=== PATIENT | female | born 1975 | race Caucasian/White ===

== ENCOUNTER 2018-11-22 19:55 | Emergency (ER) | payer BC ==
[2018-11-22] MEDS ORDERED: NA CHLORIDE 0.9% 1,000 ML ONE (23:03)
[2018-11-22 23:13] LABS: Absolute Lymphocytes (CBC) 2.7 K/uL (0.7-4.9); Absolute Monocytes 0.9 K/uL (0.1-1.3); Absolute Neutrophil 6.1 K/uL (1.8-8.0); Basophils % 0.6 % (0-1.3); Eosinophils % 3.2 % (0-4.4); Hematocrit 40.1 % (36.0-45.0); Lymphocytes % 26.7 % (15.3-44.8); MPV 10.6 fL (7.6-11.3); Monocytes % 8.6 % (3.3-12.3)
[2018-11-22 23:16] LABS: Protime INR 1.16
[2018-11-22 23:48] LABS: ALT/SGPT 23 U/L (12-78); AST/SGOT 35 U/L (15-37); Albumin 3.3 g/dL (3.4-5.0); Alkaline Phosphatase 105 U/L (45-117); BUN Blood Urea Nitrogen 8 mg/dL (7-18); Bicarbonate 25 mmol/L (21-32); Bilirubin Direct 0.2 mg/dL (0-0.2); Bilirubin Total 0.3 mg/dL (0.2-1.0); Glucose Level 146 mg/dL (74-106); Magnesium 1.7 mg/dL (1.8-2.4); NT PRO-BNP 274 pg/mL (<125); Potassium 3.7 mmol/L (3.5-5.1); Protein, Total 7.4 g/dL (6.4-8.2); Sodium Level 142 mmol/L (136-145); Troponin (Emerg Dept Use Only) < 0.02 ng/mL (0.0-0.045)
--- NOTE | 2018-11-23 03:07 | EDPHYS ---
Physician Documentation [facility] Name: Norma Whiting Age: 43 yrs Sex: Female : 1975 Arrival Date: 11/22/2018 Time: 19:56 Bed 7 Private MD: Maxx Gordon ED Physician William Russ HPI: 11/22 23:38 This 43 yrs old Female presents to ER via Ambulatory with complaints of Chest ma2 Tightness, Dizziness. 23:38 Onset: gradually, 3 day(s) ago. Associated signs and symptoms: Pertinent negatives: ma2 cough, headache, syncope. The chest pain is described as a heaviness. Duration: The patient or guardian reports a single episode. Severity of pain: At its worst the pain was mild in the emergency department the pain is unchanged. 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 - Social history:: Smoking status: Patient uses tobacco products, denies chronic smoking, but will smoke occasionally, Patient/guardian denies using alcohol, street drugs, The patient lives with family. - Ebola Screening: : Patient negative for fever greater than or equal to 101.5 degrees Fahrenheit, and additional compatible Ebola Virus Disease symptoms. - Family history:: not pertinent. ROS: 23:38 Constitutional: Negative for fever, chills, and weight loss. ma2 23:38 Respiratory: Positive for shortness of breath, Negative for hemoptysis, orthopnea. 23:38 All other systems are negative. Exam: 23:38 Constitutional: This is a well developed, well nourished patient who is awake, alert, ma2 and in no acute distress. Neck: Trachea midline, no thyromegaly or masses palpated, and no cervical lymphadenopathy. Supple, full range of motion without nuchal rigidity, or vertebral point tenderness. No Meningismus. Chest/axilla: Normal chest wall appearance and motion. Nontender with no deformity. No lesions are appreciated. Cardiovascular: Regular rate and rhythm with a normal S1 and S2. No gallops, murmurs, or rubs. Normal PMI, no JVD. No pulse deficits. Respiratory: Lungs have equal breath sounds bilaterally, clear to auscultation and percussion. No rales, rhonchi or wheezes noted. No increased work of breathing, no retractions or nasal flaring. Abdomen/GI: Soft, non-tender, with normal bowel sounds. No distension or tympany. No guarding or rebound. No evidence of tenderness throughout. Vital Signs: 20:09 BP 111 / 74; Pulse 104; Resp 18 S; Temp 98.8(TE); Pulse Ox 97% on R/A; Weight 102.06 kg jd3 (R); Height 4 ft. 11 in. (149.86 cm) (R); Pain 0/10; 23:00 BP 133 / 71; Pulse 91; Resp 24; Pulse Ox 96% on R/A; lp1 23:30 BP 129 / 75; Pulse 93; Resp 26; Pulse Ox 95% on R/A; lp1 11/23 00:00 BP 139 / 73; Pulse 93; Resp 17; Pulse Ox 95% on R/A; lp1 01:30 BP 141 / 81; Pulse 94; Resp 22; Pulse Ox 95% on R/A; lp1 03:00 BP 141 / 84; Pulse 91; Resp 19; Pulse Ox 96% on R/A; lp1 11/22 20:09 Body Mass Index 45.44 (102.06 kg, 149.86 cm) jd3 MDM: 11/22 23:38 Differential diagnosis: anxiety, coronary artery disease gastroesophageal reflux ma2 disease (GERD), pulmonary embolus, stable angina. 11/23 01:17 Patient medically screened. ma2 03:06 Data reviewed: vital signs, nurses notes, lab test result(s). Counseling: I had a ma2 detailed discussion with the patient and/or guardian regarding: the historical points, exam findings, and any diagnostic results supporting the discharge/admit diagnosis, the presence of at least one elevated blood pressure reading (>120/80) during this emergency department visit, the need for outpatient follow up. ED course: trop is negative x 2, chest pressure is constant for 3 days worse with cough and deep breath and reproducible on exam acs unlikely . 11/22 22:25 Order name: Basic Metabolic Panel; Complete Time: 00:43 ma2 11/22 22:25 Order name: CBC with Diff; Complete Time: 23:37 ma2 11/22 22:25 Order name: LFT's; Complete Time: 00:43 ma2 11/22 22:25 Order name: Magnesium; Complete Time: 00:43 ma2 11/22 22:25 Order name: NT PRO-BNP; Complete Time: 00:43 ma2 11/22 22:25 Order name: PT-INR; Complete Time: 23:37 ma2 11/22 21:03 Order name: Chest Pa And Lat (2 Views) XRAY snw 11/22 22:25 Order name: Troponin (emerg Dept Use Only); Complete Time: 00:43 ma2 11/22 23:05 Order name: D-Dimer; Complete Time: 23:37 EDMS 11/22 23:38 Order name: CT Chest For PE Angio wi2 11/23 02:07 Order name: Troponin (emerg Dept Use Only): 3 hrs repeat please; Complete Time: 03:05 ma2 11/22 21:03 Order name: EKG; Complete Time: 21:03 w 11/22 21:03 Order name: EKG - Nurse/Tech; Complete Time: 21:08 w 11/22 22:25 Order name: Cardiac monitoring; Complete Time: 23:01 ma2 11/22 22:25 Order name: IV Saline Lock; Complete Time: 23:01 ma2 11/22 22:25 Order name: Labs collected and sent; Complete Time: 23:01 wi2 11/22 22:25 Order name: O2 Per Protocol; Complete Time: 23:01 ma2 11/22 22:25 Order name: O2 Sat Monitoring; Complete Time: 23:01 ma Administered Medications: 11/22 22:56 Drug: NS 0.9% 1000 ml Route: IV; Rate: 1 bolus; Site: right hand; ea 11/23 00:30 Follow up: IV Status: Completed infusion; IV Intake: 1000ml lp1 Disposition: 11/23/18 03:05 Discharged to Home. Impression: Chest pain on breathing. - Condition is Stable. - Discharge Instructions: Nonspecific Chest Pain, [id number]. - Prescriptions for Tylenol- Codeine #3 300-30 mg Oral Tablet - take 2 tablet by ORAL route every 6 hours As needed; 30 tablet. - Medication Reconciliation Form, Thank You Letter, Antibiotic Education, Prescription Opioid Use form. - Follow up: Private Physician; When: Tomorrow; Reason: Continuance of care. Signatures: Dispatcher [employer] EDND Serena Soto, GRAPHIC DESIGN INTERN-C GRAPHIC DESIGN INTERN-Csnw Dariana Lindsey RN RN lp1 Susu Robertson RN RN ea Davies, Jonathon, RN RN jd3 William Russ MD MD ma2 Corrections: (The following items were deleted from the chart) 11/22 22:28 22:26 Chest Single View+RAD.RAD.BRZ ordered. EDND EDND 23:05 22:35 D-DIMER+COAG.LAB.BRZ ordered. EDND EDND 11/23 03:22 03:05 11/23/2018 03:05 Discharged to Home. Impression: Chest pain on breathing. lp1 Condition is Stable. Forms are Medication Reconciliation Form, Thank You Letter, Antibiotic Education, Prescription Opioid Use. Follow up: Private Physician; When: Tomorrow; Reason: Continuance of care. ma2
--- NOTE | 2018-11-23 03:07 | ER ---
Nurse's Notes [facility] Name: Norma Whiting Age: 43 yrs Sex: Female : 1975 Arrival Date: 11/22/2018 Time: 19:56 Bed 7 Private MD: Maxx Gordon Diagnosis: Chest pain on breathing Presentation: 11/22 20:05 Presenting complaint: Patient states: "I was taking some mediation my doctor gave me, jd3 it gave me chest pressure. when contacting the doctors office they said the medication doesn't cause chest pressure and to come to the ER.". Transition of care: patient was not received from another setting of care. Onset of symptoms was November 22, 2018. Risk Assessment: Do you want to hurt yourself or someone else? Patient reports no desire to harm self or others. Initial Sepsis Screen: Does the patient meet any 2 criteria? No. Patient's initial sepsis screen is negative. Does the patient have a suspected source of infection? No. Patient's initial sepsis screen is negative. Care prior to arrival: None. 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 - Social history:: Smoking status: Patient uses tobacco products, denies chronic smoking, but will smoke occasionally, Patient/guardian denies using alcohol, street drugs, The patient lives with family. - Ebola Screening: : Patient negative for fever greater than or equal to 101.5 degrees Fahrenheit, and additional compatible Ebola Virus Disease symptoms. - Family history:: not pertinent. Screenin:45 Abuse screen: Denies threats or abuse. Denies injuries from another. Nutritional lp1 screening: No deficits noted. Tuberculosis screening: No symptoms or risk factors identified. Fall Risk None identified. Assessment: 22:45 General: Appears uncomfortable, Behavior is calm, cooperative, appropriate for age. lp1 Pain: Complains of pain in chest Pain does not radiate. Pain began gradually. Neuro: Level of Consciousness is awake, alert, obeys commands, Oriented to person, place, time, situation. Cardiovascular: Patient's skin is warm and dry. Respiratory: Respiratory effort is even, unlabored, Respiratory pattern is regular, Breath sounds are clear bilaterally. GI: No signs and/or symptoms were reported involving the gastrointestinal system. : No signs and/or symptoms were reported regarding the genitourinary system. EENT: No signs and/or symptoms were reported regarding the EENT system. Derm: Skin is pink, warm \\T\\ dry. Musculoskeletal: Circulation, motion, and sensation intact. 23:45 Reassessment: Patient appears in no apparent distress at this time. No changes from lp1 previously documented assessment. Patient and/or family updated on plan of care and expected duration. Pain level reassessed. 11/23 00:44 Reassessment: Patient appears in no apparent distress at this time. Patient returned lp1 from CT at this time. 02:00 Reassessment: Patient appears in no apparent distress at this time. Patient and/or lp1 family updated on plan of care and expected duration. Pain level reassessed. Patient is alert, oriented x 3, equal unlabored respirations, skin warm/dry/pink. Patient aware of pending CT results. 03:22 Reassessment: Patient is alert, oriented x 3, equal unlabored respirations, skin lp1 warm/dry/pink. Patient states feeling better. Vital Signs: 11/22 20:09 BP 111 / 74; Pulse 104; Resp 18 S; Temp 98.8(TE); Pulse Ox 97% on R/A; Weight 102.06 kg jd3 (R); Height 4 ft. 11 in. (149.86 cm) (R); Pain 0/10; 23:00 BP 133 / 71; Pulse 91; Resp 24; Pulse Ox 96% on R/A; lp1 23:30 BP 129 / 75; Pulse 93; Resp 26; Pulse Ox 95% on R/A; lp1 11/23 00:00 BP 139 / 73; Pulse 93; Resp 17; Pulse Ox 95% on R/A; lp1 01:30 BP 141 / 81; Pulse 94; Resp 22; Pulse Ox 95% on R/A; lp1 03:00 BP 141 / 84; Pulse 91; Resp 19; Pulse Ox 96% on R/A; lp1 11/22 20:09 Body Mass Index 45.44 (102.06 kg, 149.86 cm) jd3 ED Course: 11/22 19:56 Patient arrived in ED. am2 19:57 Maxx Gordon MD is Private Physician. am2 20:07 Triage completed. jd3 20:10 Arm band placed on. EKG completed in triage. Results shown to MD. jd3 21:19 X-ray completed. Patient tolerated procedure well. ml 21:21 Chest Pa And Lat (2 Views) XRAY In Process Unspecified. EDMS 22:24 William Russ MD is Attending Physician. ma2 22:38 Susu Robertson, LASHON is Primary Nurse. ea 22:45 Patient has correct armband on for positive identification. Placed in gown. Bed in low lp1 position. Call light in reach. bill clerk on. Pulse ox on. NIBP on. 22:45 Patient maintains SpO2 saturation greater than 95% on room air. lp1 23:00 Inserted saline lock: 22 gauge in right hand, using aseptic technique. Blood collected. lp1 23:17 Notified ED physician of a critical lab result(s). d dimer 1112. 23:26 Dariana Lindsey, LASHON is Primary Nurse. lp1 04 00:[address] via stretcher. lp1 00:23 Inserted saline lock: 22 gauge in right antecubital area, using aseptic technique. lp1 00:53 CT completed. Patient tolerated procedure well. Patient moved back from CT. 01:11 CT Chest For PE Angio In Process Unspecified. EDMS 02:36 Repeat lab(s) drawn. by wy, sent to lab. lp1 02:36 No provider procedures requiring assistance completed. lp1 03:22 IV discontinued, No redness/swelling at site. Pressure dressing applied, x2. lp1 Administered Medications: 11/22 22:56 Drug: NS 0.9% 1000 ml Route: IV; Rate: 1 bolus; Site: right hand; emilie 11/23 00:30 Follow up: IV Status: Completed infusion; IV Intake: 1000ml lp1 Intake: 00:30 IV: 1000ml; Total: 1000ml. lp1 Outcome: 03:05 Discharge ordered by . ma2 03:22 Discharged to home ambulatory, with family. lp1 03:22 Condition: good 03:22 Discharge instructions given to patient, Instructed on discharge instructions, follow up and referral plans. medication usage, Demonstrated understanding of instructions, follow-up care, medications, Prescriptions given X 1. 03:22 Patient left the ED. lp1 Signatures: Dispatcher [employer] EDND Kyle Ray Felicia, RN Mirna Smyth Laura, RN RN lp1 Tashia Culver amSusu Gregory RN RN Figueroa Rossi RN RN jd3 William Russ MD MD ma2
--- NOTE | 2018-11-23 08:14 | RAD REPORT ---
EXAM DESCRIPTION: Kendy Ram (2 Views)11/22/2018 9:23 pm CLINICAL HISTORY: Chest pain COMPARISON: None FINDINGS: The lungs appear clear of acute infiltrate. The heart is mildly enlarged IMPRESSION: No acute abnormalities displayed
--- NOTE | 2018-11-23 10:01 | RAD REPORT ---
EXAM DESCRIPTION: CT - Chest For Pe Angio - 11/23/2018 5:09 am CLINICAL HISTORY: Cough COMPARISON: None. TECHNIQUE: Axial [address] imaging of the thorax utilizing intravenous contrast. Reformatted 3 mm bina nal and sagittal images reviewed. Reconstructed 2 mm right and left oblique images of the pulmonary v asculature also reviewed. This exam was performed according to our departmental dose-optimization program which includes automa vikki exposure control, adjustment of the mA and/or kV according to patient size and/or use of iterativ e reconstruction technique FINDINGS: PULMONARY ARTERIES: Normal caliber main pulmonary artery. No filling defect within the ri ght atrium, right ventricle, central, or peripheral pulmonary vasculature. HEART/GREAT VESSELS: The heart is mildly enlarged. No pericardial fluid. Normal caliber thoracic aor ta. Normal branch pattern of the arch vessels. MEDIASTINUM/RA: No lymphadenopathy. Normal appearance of the central airways. Normal esophagus. LUNGS/PLEURA: No airspace consolidation. No edema. No pleural fluid. CHEST WALL/SOFT TISSUES: Normal thyroid. No axillary lymphadenopathy. There are a few scattered scle rotic densities in the right and left ribs due to bone islands. There is mild generalized thoracic sp ondylosis. Multilevel Schmorl's nodes are present. UPPER ABDOMEN: Decreased liver attenuation due to mild steatosis. Normal spleen, stomach, and pancre as. IMPRESSION: 1. No pulmonary embolism. 2. No acute chest disease. 3. Mild fatty liver. Electronically signed by: Petra Mclean DO 11/23/2018 1:29 AM CDT Due to temporary technical issues with the PACS/Fluency reporting system, reports are being signed by the in house radiologist as a courtesy to ensure prompt reporting. The interpreting radiologist is f ully responsible for the content of the report.
== END 2018-11-23 03:22 | disposition home or self-care (01) ==
LOC: ER 19:55
DX: R07.1 Chest pain on breathing (principal); Z72.0 Tobacco use
CPT/HCPCS: 36415; 71046; 71275; 80048; 80076; 83735; 83880; 84484; 85025; 85379; 85610; 93005; 96360; 96361; 99285; J7030; Q9967